=== PATIENT | female | born 1985 | race Asian ===

== ENCOUNTER 2019-01-15 12:44 | Inpatient (IN) | payer BC ==
[~2019-01-15] VITALS: Ht 157.5 cm; Wt 63.0 kg
[2019-01-15] MEDS ORDERED: LR 1,000 ML IV ONE (12:53)
[2019-01-15] MEDS ORDERED: OXYTOCIN/0.9 % SODIUM CHLORIDE 1,000 ML IV SCH (12:53)
[2019-01-15] MEDS ORDERED: NALBUPHINE HCL 10 MG/ML AMP IVP PRN (13:00)
[2019-01-15 13:28] LABS: BASOPHILS # (AUTO) 0.1 K/uL (0.0-0.2); BASOPHILS % (AUTO) 0.4 % (0.0-2.0); EOSINOPHILS # (AUTO) 0.1 K/uL (0.0-0.4); EOSINOPHILS % (AUTO) 0.5 % (0.0-4.0); HEMATOCRIT 37.5 % (36-48); HEMOGLOBIN 12.4 g/dL (12.0-16.0); LYMPHOCYTES # (AUTO) 1.2 K/uL (1.0-5.5); LYMPHOCYTES % (AUTO) 8.7 % (20.5-51.5); MEAN CORPUSCULAR HEMOGLOBIN 30 pg (27-31); MEAN CORPUSCULAR HGB CONC 33 % (32-36); MEAN CORPUSCULAR VOLUME 91 fL (79.0-98.0); MONOCYTES # (AUTO) 0.9 K/uL (0.0-1.0); MONOCYTES % (AUTO) 6.4 % (1.7-9.3); NEUTROPHILS # (AUTO) 11.3 K/uL (1.8-7.7); PLATELET COUNT (AUTO) 222 K/uL (130-430); RED BLOOD CELL COUNT(AUTO) 4.11 MIL/uL (4.2-6.2); RED CELL DISTRIBUTION WIDTH 13.3 % (9.0-15.0); WHITE BLOOD COUNT (AUTO) 13.4 K/uL (4.8-10.8)
[2019-01-15] MEDS ORDERED: FENT2mCg/mL-ROPIVA0.2%/NS EPID 200 ML EP SCH (13:30)
[2019-01-15] MEDS ORDERED: LR 500 ML IV ONE (13:30)
[2019-01-15] MEDS ORDERED: ePHEDrine sulfate 50 MG/ML VIAL IVP PRN (13:30)
[2019-01-15] MEDS ORDERED: fentaNYL CITRATE/PF 100 MCG/2 ML AMP EP ONE (13:30)
[2019-01-15] MEDS ORDERED: fentaNYL CITRATE/PF 100 MCG/2 ML AMP ONE (13:34)
[2019-01-15] MEDS ORDERED: ROPIVACAINE HCL/PF 0.2% 200 ML ONE (13:35)
[2019-01-15 14:26] VITALS: BP_SYST 124
[2019-01-15] MEDS: LR 1,000 ML IV SCH (15:24)
[2019-01-15] MEDS ORDERED: NALOXONE HCL 1 MG in NACL 0.9% 1,000 ML IV PRN ×4 (18:48)
[2019-01-15] MEDS ORDERED: LR 1,000 ML IV SCH ×2 (18:48→22:00)
[2019-01-15] MEDS ORDERED: ONDANSETRON HCL 4 MG/2 ML VIAL IVP PRN (19:00)
[2019-01-15] MEDS ORDERED: HYDROmorphone 1 MG INJ. 1 MG/ML AMPUL IVP PRN (19:00)
[2019-01-15] MEDS ORDERED: CEFAZOLIN 2 GM IVPB PREMIX 50 ML IV ONE (19:00)
[2019-01-15] MEDS ORDERED: HYDROmorphone 2 MG/ML VIAL IVP PRN ×2 (19:00)
[2019-01-15] MEDS ORDERED: MEPERIDINE HCL/PF 25 MG/ML DISP.SYRIN IVP PRN ×2 (19:00)
[2019-01-15] MEDS ORDERED: DIPHENHYDRAMINE INJ 50 MG/ML VIAL IVP PRN (19:00)
[2019-01-15] MEDS ORDERED: NALOXONE HCL 0.4 MG/ML AMP (NARCAN) IVP PRN ×3 (19:00)
[2019-01-15] MEDS ORDERED: DIPHENHYDRAMINE HCL 50 MG CAPSULE PO PRN (19:00)
[2019-01-15 20:16] VITALS: BP_SYST 106
[2019-01-15] MEDS ORDERED: MORPHINE SULFATE 10MG/10ML PF AMP ONE (20:20)
[2019-01-15] MEDS ORDERED: NS IRRIG SOLN 1000 ML IR ONE (20:20)
[2019-01-15] MEDS ORDERED: ONDANSETRON HCL 4 MG/2 ML VIAL ONE (20:20)
[2019-01-15] MEDS ORDERED: DIPHENHYDRAMINE INJ 50 MG/ML VIAL ONE (20:20)
[2019-01-15] MEDS ORDERED: LIDOCAINE 2%, 20 ML MDV ONE (20:20)
[2019-01-15] MEDS ORDERED: OXYTOCIN/0.9 % SODIUM CHLORIDE 20 UNITS/1,000 ML BAG IV ONE (20:20)
[2019-01-15] MEDS ORDERED: MIDAZOLAM HCL 5 MG/ML VIAL (VERSED) IV ONE (20:20)
[2019-01-15] MEDS ORDERED: ePHEDrine sulfate 50 MG/ML VIAL ONE (20:20)
[2019-01-15] MEDS ORDERED: LR 1,000 ML IV.SOLN IV ONE (20:20)
[2019-01-15] MEDS ORDERED: OXYTOCIN 10 UNIT/ML VIAL ONE (20:20)
[2019-01-15] MEDS ORDERED: SENNOSIDES/DOCUSATE SODIUM 1 TAB TABLET(SENOKOT-S) PO PRN (20:45)
[2019-01-15] MEDS ORDERED: OXYCODONE/ACETAMINOPHEN 5-325 TABLET PO PRN (20:45)
[2019-01-15] MEDS ORDERED: TEMAZEPAM 15 MG CAPSULE PO PRN (21:00)
[2019-01-15] MEDS ORDERED: OXYTOCIN/0.9 % SODIUM CHLORIDE 1,000 ML IV ONE (22:00)
[2019-01-15] MEDS ORDERED: PIPERACILLIN/TAZOBACTAM 3.375 GM/VIAL (ZOSYN) IV ONE (22:40)
[2019-01-15] MEDS: KETOROLAC TROMETHAMINE 30 MG VIAL IVP SCH (22:49)
[2019-01-15] MEDS: PIPERACILLIN/TAZO 3.375/DEX-IS 50 ML IV SCH (22:49)
[2019-01-16 06:07] LABS: BASOPHILS % (AUTO) 0.3 % (0.0-2.0); EOSINOPHILS % (AUTO) 0.1 % (0.0-4.0); HEMATOCRIT 32.9 % (36-48); HEMOGLOBIN 10.9 g/dL (12.0-16.0); LYMPHOCYTES # (AUTO) 1.4 K/uL (1.0-5.5); LYMPHOCYTES % (AUTO) 7.3 % (20.5-51.5); MEAN CORPUSCULAR HEMOGLOBIN 30 pg (27-31); MEAN CORPUSCULAR HGB CONC 33 % (32-36); MEAN CORPUSCULAR VOLUME 91 fL (79.0-98.0); MONOCYTES # (AUTO) 1.1 K/uL (0.0-1.0); NEUTROPHILS # (AUTO) 16.2 K/uL (1.8-7.7); NEUTROPHILS % (AUTO) 86.3 % (40.0-70.0); PLATELET COUNT (AUTO) 184 K/uL (130-430); RED CELL DISTRIBUTION WIDTH 13.2 % (9.0-15.0); WHITE BLOOD COUNT (AUTO) 18.7 K/uL (4.8-10.8)
[2019-01-16] MEDS: KETOROLAC TROMETHAMINE 30 MG VIAL IVP SCH ×2 (06:12→12:23)
[2019-01-16] MEDS: PIPERACILLIN/TAZO 3.375/DEX-IS 50 ML IV SCH ×2 (06:13→12:23)
[2019-01-16] MEDS: LR 1,000 ML IV SCH (09:45)
[2019-01-16] MEDS: IBUPROFEN 600 MG TABLET PO SCH ×2 (17:52→23:35)
[2019-01-16] MEDS: SIMETHICONE 80 MG TAB.CHEW PO PRN ×2 (17:52→23:49)
[2019-01-16] MEDS: CEPHALEXIN 500 MG CAPSULE PO SCH ×2 (17:52→23:34)
[2019-01-16] MEDS: DOCUSATE SODIUM 100 MG CAPSULE PO PRN (23:49)
[2019-01-16] MEDS: OXYCODONE/ACETAMINOPHEN 5-325 TABLET PO PRN (23:50)
[2019-01-17] MEDS: CEPHALEXIN 500 MG CAPSULE PO SCH ×3 (06:00→17:42)
[2019-01-17] MEDS: IBUPROFEN 600 MG TABLET PO SCH ×4 (06:00→23:57)
[2019-01-17] MEDS: SIMETHICONE 80 MG TAB.CHEW PO PRN (23:56)
[2019-01-17] MEDS: DOCUSATE SODIUM 100 MG CAPSULE PO PRN (23:57)
[2019-01-18] MEDS: OXYCODONE/ACETAMINOPHEN 5-325 TABLET PO PRN (02:27)
[2019-01-18] MEDS: IBUPROFEN 600 MG TABLET PO SCH ×2 (05:47→11:49)
[2019-01-18] MEDS: CEPHALEXIN 500 MG CAPSULE PO SCH ×2 (05:47→11:47)
[2019-01-18] MEDS: DOCUSATE SODIUM 100 MG CAPSULE PO PRN (11:48)
[2019-01-18] MEDS: SIMETHICONE 80 MG TAB.CHEW PO PRN (11:48)
[2019-01-18] MEDS ORDERED: ROPIVACAINE 40 MG/20 ML AMP EP ONE (13:55)
== END 2019-01-18 13:56 | disposition home or self-care (01) | DRG 788 ==
LOC: SPU 12:44
PROVIDERS: ADMIT Obstetrics & Gynecology; ATTEND Obstetrics & Gynecology
PROC: 10D00Z1 Extraction of Products of Conception, Low, Open Approach (ICD-10-PCS; principal; 2019-01-15 19:10)
DX: O69.1XX0 Labor and delivery complicated by cord around neck, with compression, not applicable or unspecified (principal); Z37.0 Single live birth; O76 Abnormality in fetal heart rate and rhythm complicating labor and delivery; Z3A.39 39 weeks gestation of pregnancy
CPT/HCPCS: 36415; 81002-TC; 85025; 86592; 86886; 86900; 86901; 94760; J0690; J1200; J1885; J2001; J2250; J2274; J2310; J2405; J2543; J2590; J2795; J3010; J7030; J7120